=== PATIENT | female | born 1990 | race Asian ===

== ENCOUNTER 2022-02-23 08:53 | Outpatient (REF) | payer OTHER, SELFPAY ==
--- NOTE | ~2022-02-23 | MM_ITS ---
EXAMINATION: MM DIAGNOSTIC DIGITAL BREAST TOMOSYNTHESIS, BILATERAL US DIAGNOSTIC ULTRASOUND BREAST, LEFT CLINICAL INFORMATION: 32-year-old with palpable lesion posterior inferior left breast. Prior history benign ultrasound-guided core biopsy left breast 03/07/2018 (fibroadenoma) near this same area. No known family history breast cancer. The lifetime risk of breast cancer based on the Tyrer-Cuzick Model is 11%. COMPARISON: Mammography: 02/07/2018, 03/07/2018, ultrasound-guided core biopsy 03/07/2018, targeted left breast ultrasound 02/07/2018. TECHNIQUE: Digital breast tomosynthesis is performed in both the craniocaudal and mediolateral oblique views along with computer-aided detection (CAD). Synthesized 2D images are generated from the tomosynthesis. Ultrasound left breast is targeted to the area of clinical concern inferior posterior breast. Grayscale imaging and color Doppler are performed without and with harmonics. Patient is able to point to area of concern at time of imaging. FINDINGS: The breasts are heterogeneously dense, which may obscure small masses (ACR BI-RADS breast composition Category c). Breast tissue composition borders on average fibroglandular. There are no significant masses, abnormal calcifications, or other abnormalities. The biopsy clip marker is not demonstrated, also beyond field of view on post-biopsy mammography 2018. Ultrasound left breast demonstrates known fibroadenoma 6:00 position 6 cm from nipple corresponding to the area of palpable concern. The fibroadenoma is circumscribed and measures 1.5 x 0.9 x 1.4 cm compared with previous biopsy measurements 1.3 x 0.8 x 1.2 cm in 2018. There is a specular echo within the fibroadenoma, believed to represent the clip marker. There are no new cystic or solid masses or architectural abnormality. Chest wall soft tissues are unremarkable. Results are discussed with the patient at time of visit. MM/MM tomosynthesis diagnostic BI IMPRESSION: -No mammographic evidence of malignancy. -Known fibroadenoma corresponds to area of palpable concern. No significant changes (1.5 cm compared with 1.3 cm in 2018). ASSESSMENT: BI-RADS 2: Benign RECOMMENDATION: Routine annual mammography screening, beginning age 40, or earlier as clinical risk factors warrant. This patient's information was entered into a reminder system with a target due date for their next mammogram.
== END 2022-02-23 08:54 | disposition home or self-care (01) ==
LOC: HO.MAMMO 08:53
PROVIDERS: Visit Provider Internal Medicine
DX: N63.25 Unspecified lump in the left breast, overlapping quadrants (principal)
CPT/HCPCS: 76642; 77062; 77066